=== PATIENT | male | born 1975 | race Caucasian/White ===

== ENCOUNTER 2023-02-06 11:02 | Day surgery (SDC) | payer BC ==
[2012-06-15 16:35] VITALS: BP 135/69
[2023-02-06] MEDS ORDERED: LIDOCAINE HCL 1% 50 MG/5 ML VL PF IJ ONE (11:03)
[2023-02-06] MEDS ORDERED: Sodium Chloride 0.9(Preservative Free) 10 ML IJ ONE (11:03)
[2023-02-06] MEDS ORDERED: Depo-Medrol 40 MG/ML IM ONE (11:03)
[2023-02-06] MEDS ORDERED: DIPRIVAN 200 MG/20 ML IV ONE (12:49)
[2023-02-06] MEDS ORDERED: Lactated Ringers 1,000 ML IV ONE (14:20)
--- NOTE | 2023-02-06 14:28 | XRAY ---
Indication: Lumbar RICHAR Intraoperative fluoroscopy provider 21 seconds. 2 digital spot image submitted for interpretation demonstrates posterior needle tip projecting posterior to lumbosacral junction interspace. Small amount of contrast injected for needle tip placement. Correlate with intraoperative findings/report.
--- NOTE | 2023-02-06 15:12 | XRAY ---
21 seconds of fluoroscopy was used in surgery for a lumbar RICHAR.
== END 2023-02-06 13:21 | disposition home or self-care (01) ==
LOC: SDC-PAIN 11:02
PROVIDERS: ATTEND Psychiatry & Neurology Pain Medicine
DX: M54.16 Radiculopathy, lumbar region (principal); Z79.899 Other long term (current) drug therapy
CPT/HCPCS: 62323; 72100; 77003; J1030; J2001; J2704; Q9966

== ENCOUNTER 2023-03-06 13:36 | Day surgery (SDC) | payer BC ==
[2012-06-15 16:35] VITALS: BP 135/69
[2023-03-06] MEDS ORDERED: Depo-Medrol 40 MG/ML IM ONE (13:37)
[2023-03-06] MEDS ORDERED: BUPIVACAINE 0.5% VIAL IJ ONE (13:37)
[2023-03-06] MEDS ORDERED: Lactated Ringers 1,000 ML IV ONE (14:20)
[2023-03-06] MEDS ORDERED: DIPRIVAN 200 MG/20 ML IV ONE (14:32)
[2023-03-06] MEDS ORDERED: Xylocaine-Mpf 2% 5 Ml Vial ONE (14:35)
--- NOTE | 2023-03-07 07:16 | XRAY ---
Indication: Bilateral SI joint injection. Intraoperative fluoroscopy provided for 15 seconds. 5 digital spot image submitted for interpretation demonstrates posterior needle tip projecting over the left and right SI joints. Correlate with intraoperative findings/report.
--- NOTE | 2023-03-07 17:31 | XRAY ---
15 seconds of fluoroscopy was used in surgery for a bilateral sacroiliac joint injection.
== END 2023-03-06 15:00 | disposition home or self-care (01) ==
LOC: SDC-PAIN 13:36
PROVIDERS: ATTEND Psychiatry & Neurology Pain Medicine
DX: M46.1 Sacroiliitis, not elsewhere classified (principal); Z79.899 Other long term (current) drug therapy
CPT/HCPCS: 27096; 72202; 77002; J1030; J2704; G0260